=== PATIENT | male | born 1980 | race Caucasian/White ===

== ENCOUNTER → 2019-02-22 | Outpatient (CLI) | payer SELFPAY ==
[~2019-02-22] MED LIST: Cleocin HCl300 MG PO; IBUP800 PO; OXYACE5T PO; RXCLIN PO; RXTRAM50 PO; SULTRIDS PO; TRAM50 PO
== END | disposition home or self-care (01) ==
LOC: LAB SHORT 06:10 → LAB 06:10
DX: K21.9 Gastro-esophageal reflux disease without esophagitis (principal); R10.9 Unspecified abdominal pain
CPT/HCPCS: 87338

== ENCOUNTER 2019-05-12 14:37 | Inpatient (IN) | payer OTHER ==
[~2019-05-12] VITALS: Ht 177.8 cm; Wt 87.4 kg
[2019-05-12 15:34] LABS: BASOPHILS ABSOLUTE AUTO 0.02 K/mm3 (0.00-0.23); BASOPHILS PERCENT AUTO 0 % (0-2); EOSINOPHILS ABSOLUTE AUTO 0.19 K/mm3 (0.00-0.68); EOSINOPHILS PERCENT AUTO 3 % (0-6); Hematocrit 44.4 % (37.0-53.0); IMMATURE GRAN ABSOLUTE AUTO 0.01 K/mm3 (0.00-0.10); IMMATURE GRAN PERCENT AUTO 0 % (0-1); LYMPHOCYTES PERCENT AUTO 29 % (21-46); MONOCYTES ABSOLUTE AUTO 0.62 K/mm3 (0.16-1.47); MONOCYTES PERCENT AUTO 10 % (4-13); Mean Corpuscular HGB 31.8 pg (26.0-34.0); Mean Corpuscular HGB Conc 33.8 g/dL (31.5-36.5); Mean Corpuscular Volume 94 fL (80-100); Mean Platelet Volume 10.2 fL (9.1-12.4); NEUTROPHILS ABSOLUTE AUTO 3.66 K/mm3 (1.96-9.15); NEUTROPHILS PERCENT AUTO 58 % (41-73); Platelet Count 178 K/mm3 (150-400); RDW Coefficient Variation 12.4 % (11.7-14.2); RDW Standard Deviation 43.2 fL (35.1-46.3); Red Blood Cell Count 4.71 M/mm3 (4.30-5.90)
[2019-05-12 16:03] LABS: Alanine Aminotransfer (ALT/SGP 26 U/L (12-78); Albumin, Blood 3.6 g/dL (3.4-5.0); Albumin/Globulin Ratio 1.2 (0.8-1.8); Alk Phos 72 U/L (50-136); Anion Gap 3 mmol/L (6-16); Aspartate Aminotrans (AST/SGOT 24 U/L (12-37); Bilirubin, Total 0.4 mg/dL (0.1-1.0); Blood Urea Nitrogen 19 mg/dL (8-24); Bun/Creatinine Ratio 18.3 (12.0-20.0); CO2, Blood 27 mmol/L (21-32); Calcium, Blood 8.8 mg/dL (8.5-10.1); Chloride, Blood 109 mmol/L (98-108); Creatinine, Blood 1.04 mg/dL (0.60-1.20); Globulin, Blood 3.1 g/dL (2.2-4.0); Glomerular Filtration Rate >60 (60-); Glucose, Blood 99 mg/dL (70-99); Potassium, Blood 3.9 mmol/L (3.5-5.5); Sodium, Blood 139 mmol/L (136-145); Total Protein, Blood 6.7 g/dL (6.4-8.2)
[2019-05-12 16:05] LABS: Troponin I 0.525 ng/mL (0.000-0.040)
[2019-05-12 16:53] LABS: International Normalized Ratio 0.99; Prothrombin Time Results 10.6 Sec (9.7-11.5)
[2019-05-12 17:31] LABS: CPK Creatine Kinase 229 U/L (39-308)
--- NOTE | 2019-05-12 20:30 | NUR ---
RECEIVED HAND OFF FROM BRENDAN MONTERO IN ER USING SBAR. TRANSPORTED TO ROOM VIA STRETCHER WITH AT BEDSIDE. TRANSFERED SELF TO BED WITH STANDBY ASSIST, TOLERATED WELL. AAO X3. KRAFT, FOLLOWS ALL COMMANDS. ORIENTED TO ROOM, CALL SYSTEM, AND POC, VOICES UNDERSTANDING. TELEMETRY SHOWS NSR 70'S. RESPIRATIONS EVEN AND UNLABORED ON ROOM AIR. LUNG SOUNDS CLEAR BILATERALLY. ABDOMEN SOFT AND NONDISTENDED. BOWEL SOUNDS PRESENT IN ALL QUADS. RIGHT AC 20G PIV IS PATENT, FLUSHING WITH EASE WHILE INFUSING HEPARIN GTT AT 13U/KG/HR WHICH IS 22.6ML/HR, TOLERATING WELL. REFUSES ORDERED FLU VACCINE, STATES THAT HE DOESN'T TAKE VACCINES. DENIES CP AT THIS TIME, BUT C/O [employer]. WILL CALL FOR MED ORDERS. CONTINENT OF BOWEL AND BLADDER, USES BATHROOM. IS INDEPEDENT IN ROOM. ADMISSION ASSESSMENT IN PROGRESS. SAFETY MEASURS IN PLACE. WILL CONTINUE TO MONITOR.
[2019-05-13 00:09] LABS: Troponin I 0.592 ng/mL (0.000-0.040)
--- NOTE | 2019-05-13 00:40 | NUR ---
CRITICAL VALUE CALL BY HEMATOLOGY CALLED TO NIKKI Khanna FNP. NO NEW ORDERS NOTED. SAFETY MEASURES IN PLACE. WILL CONTINUE TO MONITOR.
[2019-05-13 05:26] LABS: Hematocrit 43.9 % (37.0-53.0); Hemoglobin 14.9 g/dL (13.5-17.5); Mean Corpuscular HGB Conc 33.9 g/dL (31.5-36.5); Mean Corpuscular Volume 94 fL (80-100); Mean Platelet Volume 10.6 fL (9.1-12.4); Platelet Count 182 K/mm3 (150-400); RDW Coefficient Variation 12.5 % (11.7-14.2); RDW Standard Deviation 43.4 fL (35.1-46.3); Red Blood Cell Count 4.66 M/mm3 (4.30-5.90); White Blood Cell Count 6.39 K/mm3 (4.00-11.30)
[2019-05-13 05:49] LABS: Anion Gap 7 mmol/L (6-16); Blood Urea Nitrogen 20 mg/dL (8-24); Bun/Creatinine Ratio 18.7 (12.0-20.0); CHOL/HDL RATIO 4.4; CO2, Blood 24 mmol/L (21-32); Calcium, Blood 8.6 mg/dL (8.5-10.1); Chloride, Blood 111 mmol/L (98-108); Cholesterol 171 mg/dL (50-200); Creatinine, Blood 1.07 mg/dL (0.60-1.20); Glomerular Filtration Rate >60 (60-); Glucose, Blood 107 mg/dL (70-99); HDL Cholesterol 39 mg/dL (>39); LDL/HDL RATIO 2.1; Low Density Lipoprotein Chol 84 mg/dL (0-110); Magnesium, Blood 2.4 mg/dL (1.6-2.4); Phosphorus, Blood 3.6 mg/dL (2.5-4.9); Potassium, Blood 3.7 mmol/L (3.5-5.5); Sodium, Blood 142 mmol/L (136-145); Triglycerides 241 mg/dL (30-140); Very Low Density Lipoprot Chol 48 mg/dL (6-28)
--- NOTE | 2019-05-13 07:09 | NUR ---
SHIFT SUMMARY ELEVATED TROPONIN RECEIVED EARLIER THIS SHIFT. HEPARIN LEVEL ADJUSTED PER PHARMACY. TELE SHOWS NSR WITH INVERTES T WAVES. DENIES PAIN, DISCOMFORT, OR FURTHER NEEDS AT THIS TIME. SAFETY MEASURES IN PLACE. WILL GIVE HAND OFF TO ONCOMING SHIFT USING SBAR.
[2019-05-13 09:06] LABS: Troponin I 0.498 ng/mL (0.000-0.040)
--- NOTE | 2019-05-13 18:06 | NUR ---
ECHOCARDIOGRAM COMPLETE
--- NOTE | 2019-05-13 18:23 | NUR ---
PCU DAYSHIFT SUMMARY PATIENT ALERT AND ORIENTED X4 T/O SHIFT. INDEPENDENT IN ROOM. RESP E/U ON ROOM AIR. PATIENT HAD C/P AND JAW PAIN WITH ELEVATED TROPONIN AND INVERTED T WAVES ON EKG - HEPARIN GTT RUNNING THIS AM. PATIENT LEFT UNIT FOR ANGIOGRAM AND RECIEVED 1 STENT. PATIENT TOLERATED PROCEDURE WELL. HEPARIN GTT D/C'D. TITRATING CARDIAC MEDICATIONS PER ANGIO AND ECHO RESULT. PATIENT REMAINS STABLE. RIGHT RADIAL SITE WITH TR BAND SLOWLY BEING RECOVERED PER PROTOCOL - NO S/SX OF BLEEDING OR HEMATOMA NOTED. PATIENT REMAINS INDEPENDENT IN ROOM, EDUCATED ON POST ANGIO PRECAUTIONS AND INSTRUCTIONS. WILL CONTINUE TO MONITOR AND REPORT TO NOC SHIFT RN. CALL LIGHT W/I REACH.
[2019-05-14 04:28] LABS: BASOPHILS ABSOLUTE AUTO 0.03 K/mm3 (0.00-0.23); BASOPHILS PERCENT AUTO 0 % (0-2); EOSINOPHILS PERCENT AUTO 3 % (0-6); Hematocrit 44.6 % (37.0-53.0); Hemoglobin 14.9 g/dL (13.5-17.5); IMMATURE GRAN ABSOLUTE AUTO 0.02 K/mm3 (0.00-0.10); IMMATURE GRAN PERCENT AUTO 0 % (0-1); LYMPHOCYTES ABSOLUTE AUTO 2.29 K/mm3 (0.84-5.20); LYMPHOCYTES PERCENT AUTO 29 % (21-46); MONOCYTES ABSOLUTE AUTO 0.69 K/mm3 (0.16-1.47); MONOCYTES PERCENT AUTO 9 % (4-13); Mean Corpuscular HGB Conc 33.4 g/dL (31.5-36.5); Mean Corpuscular Volume 96 fL (80-100); Mean Platelet Volume 10.6 fL (9.1-12.4); NEUTROPHILS ABSOLUTE AUTO 4.57 K/mm3 (1.96-9.15); NEUTROPHILS PERCENT AUTO 59 % (41-73); Platelet Count 171 K/mm3 (150-400); RDW Coefficient Variation 12.8 % (11.7-14.2); RDW Standard Deviation 45.2 fL (35.1-46.3); Red Blood Cell Count 4.66 M/mm3 (4.30-5.90)
[2019-05-14 04:29] LABS: Alanine Aminotransfer (ALT/SGP 26 U/L (12-78); Albumin, Blood 3.3 g/dL (3.4-5.0); Albumin/Globulin Ratio 1.1 (0.8-1.8); Alk Phos 61 U/L (50-136); Anion Gap 4 mmol/L (6-16); Aspartate Aminotrans (AST/SGOT 26 U/L (12-37); Bilirubin, Total 0.4 mg/dL (0.1-1.0); Blood Urea Nitrogen 17 mg/dL (8-24); Bun/Creatinine Ratio 15.3 (12.0-20.0); CO2, Blood 24 mmol/L (21-32); Calcium, Blood 8.5 mg/dL (8.5-10.1); Chloride, Blood 114 mmol/L (98-108); Creatinine, Blood 1.11 mg/dL (0.60-1.20); Globulin, Blood 3.1 g/dL (2.2-4.0); Glomerular Filtration Rate >60 (60-); Glucose, Blood 98 mg/dL (70-99); Potassium, Blood 3.9 mmol/L (3.5-5.5); Sodium, Blood 142 mmol/L (136-145); Total Protein, Blood 6.4 g/dL (6.4-8.2)
--- NOTE | 2019-05-14 05:32 | NUR ---
SUMMARY NO ACUTE CHANGES NOTED THROUGH THE NIGHT. VSS, ON RA, DENIES CP/PRESSURE, OPSITE REMAINS C/D/I TO RIGHT RADIAL WRIST, ARM BOARD IN PLACE, INDEPENDENT IN ROOM, TOLERAING PO INTAKE. A ONE TIME ORDER OF XANEX WAS GIVEN FOR ANXIETY. PT HAS BEEN ABLE TO SLEEP WITH NO PROBLEMS. CALL LIGHT IN REACH, [facility].
[2019-05-14] MEDS ORDERED: ASPI81CH PO (10:23)
[2019-05-14] MEDS ORDERED: MIRT30 PO (10:24)
[2019-05-14] MEDS ORDERED: CLOP75 PO (10:24)
[2019-05-14] MEDS ORDERED: LISI5 PO (10:24)
[2019-05-14] MEDS ORDERED: LIPITOR80 MG PO (10:24)
[2019-05-14] MEDS ORDERED: METO50ER PO (10:24)
[2019-05-14] MEDS ORDERED: Nicoderm Cq1 EAC1 TOP (10:25)
--- NOTE | 2019-05-14 12:03 | NUR ---
DISCHARGE PT DISCHARGED HOME. RIGHT RADIAL SITE CD&I. COVERED WITH OPSITE AND PT USING THE WRIST BOARD. PT UP AD CASSIE. GAIT STEADY. DENIES CHEST PAIN/PRESSURE. HERE. MEDICATION ORDERS FAXED TO [facility]. CONTINUE POT.
== END 2019-05-14 12:05 | disposition home or self-care (01) | DRG 247 ==
LOC: ER 14:37 → ERHOLD 18:08 → PCU 18:08
PROVIDERS: Internal Medicine; Physician Assistant; ADMIT Internal Medicine
PROC: 027034Z Dilation of Coronary Artery, One Artery with Drug-eluting Intraluminal Device, Percutaneous Approach (ICD-10-PCS; principal; 2019-05-13)
PROC: B211YZZ Fluoroscopy of Multiple Coronary Arteries using Other Contrast (ICD-10-PCS; 2019-05-13)
PROC: 4A023N7 Measurement of Cardiac Sampling and Pressure, Left Heart, Percutaneous Approach (ICD-10-PCS; 2019-05-13)
DX: I25.10 Atherosclerotic heart disease of native coronary artery without angina pectoris (principal); I25.5 Ischemic cardiomyopathy; E78.2 Mixed hyperlipidemia; F41.9 Anxiety disorder, unspecified; I16.0 Hypertensive urgency; I10 Essential (primary) hypertension; F17.210 Nicotine dependence, cigarettes, uncomplicated
CPT/HCPCS: 36415; 71046; 76937; 80048; 80053; 80061; 82550; 83036; 83735; 83880; 84100; 84443; 84484; 85025; 85027; 85347; 85610; 85730; 92978; 93005; 93010; 93306; 93454; 96374; 96375; 99152; 99153; 99285-25; A9270; A9270-GY; C1725; C1753; C1769; C1874; C1887; C1894; C9113; C9600; J0360; J1644; J2250; J2270; J2405; J3010; J7030; J7040; Q9967

== ENCOUNTER → 2019-12-19 | Outpatient (CLI) | payer OTHER ==
[~2019-12-19] MED LIST changes: +ASPI81CH PO; +CLOP75 PO; +LIPITOR80 MG PO; +LISI5 PO; +METO50ER PO; +MIRT30 PO; +Nicoderm Cq1 EAC1 TOP
== END ==
LOC: LAB SHORT 14:47 → PLD 14:47
DX: D22.5 Melanocytic nevi of trunk (principal); L57.0 Actinic keratosis
CPT/HCPCS: 88305

== ENCOUNTER → 2019-12-27 | Outpatient (CLI) | payer OTHER ==
[2019-12-28 09:06] LABS: Stool Occult Bld Immuno 1 Positive (NEGATIVE)
== END ==
LOC: LAB SHORT 13:22 → LAB 13:22
PROVIDERS: Nurse Practitioner Family
DX: K92.1 Melena (principal)
CPT/HCPCS: 82274

== ENCOUNTER 2020-03-17 16:07 | Emergency (ER) | payer OTHER ==
[~2020-03-17] VITALS: Ht 177.8 cm; Wt 88.5 kg
[2020-03-17 16:50] LABS: BASOPHILS ABSOLUTE AUTO 0.03 K/mm3 (0.00-0.23); BASOPHILS PERCENT AUTO 0 % (0-2); EOSINOPHILS ABSOLUTE AUTO 0.25 K/mm3 (0.00-0.68); EOSINOPHILS PERCENT AUTO 3 % (0-6); Hematocrit 46.6 % (37.0-53.0); Hemoglobin 15.8 g/dL (13.5-17.5); IMMATURE GRAN ABSOLUTE AUTO 0.01 K/mm3 (0.00-0.10); IMMATURE GRAN PERCENT AUTO 0 % (0-1); LYMPHOCYTES ABSOLUTE AUTO 3.07 K/mm3 (0.84-5.20); LYMPHOCYTES PERCENT AUTO 36 % (21-46); MONOCYTES ABSOLUTE AUTO 0.79 K/mm3 (0.16-1.47); MONOCYTES PERCENT AUTO 9 % (4-13); Mean Corpuscular HGB 31.2 pg (26.0-34.0); Mean Corpuscular HGB Conc 33.9 g/dL (31.5-36.5); Mean Corpuscular Volume 92 fL (80-100); Mean Platelet Volume 9.6 fL (9.1-12.4); NEUTROPHILS ABSOLUTE AUTO 4.45 K/mm3 (1.96-9.15); NEUTROPHILS PERCENT AUTO 52 % (41-73); Platelet Count 229 K/mm3 (150-400); RDW Coefficient Variation 11.9 % (11.7-14.2); Red Blood Cell Count 5.06 M/mm3 (4.30-5.90)
[2020-03-17 17:15] LABS: Alanine Aminotransfer (ALT/SGP 29 U/L (12-78); Albumin/Globulin Ratio 1.2 (0.8-1.8); Alk Phos 72 U/L (50-136); Anion Gap 9 mmol/L (6-16); Aspartate Aminotrans (AST/SGOT 20 U/L (12-37); Bilirubin, Total 0.3 mg/dL (0.1-1.0); Blood Urea Nitrogen 13 mg/dL (8-24); Bun/Creatinine Ratio 12.3 (12.0-20.0); CO2, Blood 21 mmol/L (21-32); Calcium, Blood 9.2 mg/dL (8.5-10.1); Chloride, Blood 112 mmol/L (98-108); Creatinine, Blood 1.06 mg/dL (0.60-1.20); Globulin, Blood 3.2 g/dL (2.2-4.0); Glomerular Filtration Rate >60 (60-); Glucose, Blood 91 mg/dL (70-99); Potassium, Blood 3.6 mmol/L (3.5-5.5); Sodium, Blood 142 mmol/L (136-145); Total Protein, Blood 7.2 g/dL (6.4-8.2); Troponin I <0.015 ng/mL (0.000-0.040)
[2020-03-17] MEDS ORDERED: Nitrostat0.4 MG SL (20:21)
== END 2020-03-17 20:27 | disposition home or self-care (01) ==
LOC: ER 16:07
PROVIDERS: Physician Assistant
DX: R07.9 Chest pain, unspecified (principal); Z79.82 Long term (current) use of aspirin; Z79.899 Other long term (current) drug therapy; Z79.02 Long term (current) use of antithrombotics/antiplatelets; Z87.891 Personal history of nicotine dependence
CPT/HCPCS: 36415; 71046; 80053; 84484; 85025; 93005; 93010; 99285-25; A9270

== ENCOUNTER 2020-05-01 15:16 | Emergency (ER) | payer OTHER ==
[~2020-05-01] VITALS: Ht 177.8 cm; Wt 87.5 kg
[~2020-05-01 15:16] MED LIST changes: +Nitrostat0.4 MG SL
[2020-05-01 15:51] LABS: BASOPHILS ABSOLUTE AUTO 0.04 K/mm3 (0.00-0.23); BASOPHILS PERCENT AUTO 1 % (0-2); EOSINOPHILS PERCENT AUTO 4 % (0-6); Hematocrit 45.1 % (37.0-53.0); Hemoglobin 15.4 g/dL (13.5-17.5); IMMATURE GRAN ABSOLUTE AUTO 0.05 K/mm3 (0.00-0.10); IMMATURE GRAN PERCENT AUTO 1 % (0-1); LYMPHOCYTES ABSOLUTE AUTO 1.85 K/mm3 (0.84-5.20); LYMPHOCYTES PERCENT AUTO 25 % (21-46); MONOCYTES ABSOLUTE AUTO 0.67 K/mm3 (0.16-1.47); MONOCYTES PERCENT AUTO 9 % (4-13); Mean Corpuscular HGB 31.8 pg (26.0-34.0); Mean Corpuscular HGB Conc 34.1 g/dL (31.5-36.5); Mean Corpuscular Volume 93 fL (80-100); Mean Platelet Volume 9.2 fL (9.1-12.4); NEUTROPHILS ABSOLUTE AUTO 4.42 K/mm3 (1.96-9.15); NEUTROPHILS PERCENT AUTO 60 % (41-73); Platelet Count 229 K/mm3 (150-400); RDW Coefficient Variation 12.3 % (11.7-14.2); RDW Standard Deviation 42.6 fL (35.1-46.3); Red Blood Cell Count 4.85 M/mm3 (4.30-5.90); White Blood Cell Count 7.33 K/mm3 (4.00-11.30)
[2020-05-01] MEDS ORDERED: Isosorbide Mono30 MG PO (15:52)
[2020-05-01] MEDS ORDERED: SERT50 PO (15:52)
[2020-05-01] MEDS ORDERED: ENTRESTO 24 MG1 EACH PO (15:52)
[2020-05-01] MEDS ORDERED: QUET25 PO (15:53)
[2020-05-01 16:13] LABS: Alanine Aminotransfer (ALT/SGP 36 U/L (12-78); Albumin, Blood 3.7 g/dL (3.4-5.0); Albumin/Globulin Ratio 1.2 (0.8-1.8); Alk Phos 81 U/L (50-136); Anion Gap 8 mmol/L (6-16); Aspartate Aminotrans (AST/SGOT 20 U/L (12-37); Bilirubin, Total 0.3 mg/dL (0.1-1.0); Blood Urea Nitrogen 20 mg/dL (8-24); Bun/Creatinine Ratio 20.1 (12.0-20.0); CO2, Blood 24 mmol/L (21-32); Chloride, Blood 109 mmol/L (98-108); Globulin, Blood 3.2 g/dL (2.2-4.0); Glomerular Filtration Rate >60 (60-); Glucose, Blood 97 mg/dL (70-99); Potassium, Blood 3.9 mmol/L (3.5-5.5); Sodium, Blood 141 mmol/L (136-145); Total Protein, Blood 6.9 g/dL (6.4-8.2); Troponin I <0.015 ng/mL (0.000-0.040)
== END 2020-05-01 18:50 | disposition home or self-care (01) ==
LOC: ER 15:16
PROVIDERS: Physician Assistant
DX: R07.9 Chest pain, unspecified (principal); I10 Essential (primary) hypertension; I25.2 Old myocardial infarction; Z79.82 Long term (current) use of aspirin; Z79.899 Other long term (current) drug therapy; Z87.891 Personal history of nicotine dependence
CPT/HCPCS: 71046; 80053; 83880; 84484; 85025; 93005; 93010; 99285-25

== ENCOUNTER 2020-06-10 07:41 | Day surgery (SDC) | payer OTHER ==
[~2020-06-10] VITALS: Ht 177.8 cm; Wt 91.8 kg
[~2020-06-10 07:41] MED LIST changes: +ENTRESTO 24 MG1 EACH PO; +Isosorbide Mono30 MG PO; +QUET25 PO; +SERT50 PO
[2020-06-10] MEDS ORDERED: CLOP75 (08:18)
== END 2020-06-10 10:54 | disposition home or self-care (01) ==
LOC: ORSCSDS 07:41
PROVIDERS: Student in an Organized Health Care Education/Training Program
PROC: 0DBH8ZX Excision of Cecum, Via Natural or Artificial Opening Endoscopic, Diagnostic (ICD-10-PCS; principal; 2020-06-10 09:00)
PROC: 0DBN8ZX Excision of Sigmoid Colon, Via Natural or Artificial Opening Endoscopic, Diagnostic (ICD-10-PCS; principal; 2020-06-10 09:00)
PROC: 0DBP8ZX Excision of Rectum, Via Natural or Artificial Opening Endoscopic, Diagnostic (ICD-10-PCS; principal; 2020-06-10 09:00)
PROC: 0DBL8ZX Excision of Transverse Colon, Via Natural or Artificial Opening Endoscopic, Diagnostic (ICD-10-PCS; principal; 2020-06-10 09:00)
PROC: 0DB58ZX Excision of Esophagus, Via Natural or Artificial Opening Endoscopic, Diagnostic (ICD-10-PCS; principal; 2020-06-10 09:00)
DX: K92.1 Melena (principal); K21.9 Gastro-esophageal reflux disease without esophagitis; D12.0 Benign neoplasm of cecum; D12.3 Benign neoplasm of transverse colon; D12.5 Benign neoplasm of sigmoid colon; D12.8 Benign neoplasm of rectum; K22.70 Barrett's esophagus without dysplasia; K64.4 Residual hemorrhoidal skin tags; K64.8 Other hemorrhoids; K44.9 Diaphragmatic hernia without obstruction or gangrene; I10 Essential (primary) hypertension; Z87.891 Personal history of nicotine dependence; Z79.899 Other long term (current) drug therapy; Z79.82 Long term (current) use of aspirin
CPT/HCPCS: 88305; J2405; J2704; J7120

== ENCOUNTER 2021-06-28 15:33 | Emergency (ER) | payer OTHER ==
[~2021-06-28] VITALS: Ht 180.3 cm; Wt 97.5 kg
[~2021-06-28 15:33] MED LIST changes: +CLOP75
[2021-06-28] MEDS ORDERED: OXYC5 PO (18:28)
== END 2021-06-28 18:55 | disposition home or self-care (01) ==
LOC: ER 15:33
DX: S06.9X1A Unspecified intracranial injury with loss of consciousness of 30 minutes or less, initial encounter (principal); S42.031A Displaced fracture of lateral end of right clavicle, initial encounter for closed fracture; S93.401A Sprain of unspecified ligament of right ankle, initial encounter; Z87.891 Personal history of nicotine dependence; Z79.899 Other long term (current) drug therapy; X58.XXXA Exposure to other specified factors, initial encounter
CPT/HCPCS: 70450; 71045; 73030; 73610; 96374; 96375; 96376; 99284-25; A9270; J1170; J2405

== ENCOUNTER 2021-07-06 11:49 | Day surgery (SDC) | payer OTHER ==
[~2021-07-06] VITALS: Ht 177 cm; Wt 97.5 kg
[~2021-07-06 11:49] MED LIST changes: +ASCO500 PO; +Carvedilol12.5 MG PO; +FAMO40 PO; +FURO20 PO; +KLONOPIN PO; +KLOR-CON 1010 ME7 PO; +LAMO100 PO; +OXYC5 PO; +PANT40 PO; +VITAMIN B12; +VITAMIN D31000 UNI1 PO; +ZYRTEC10 M4 PO
--- NOTE | 2021-07-06 18:12 | NUR ---
Discharge instructions reviewed with patient. Patient verbalizes understanding. Copy given to patient to take home. Dressing to procedure site clean, dry, intact with no visible drainage, swelling, erythema or bruising noted. PT ABLE TO MOVED FINGERS ON R HAND. CMS INTACT. PT PRESENT FOR DISCHARGE INSTRUCTIONS. PT HAS TOLERATED A CUP OF APPLE JUICE. DENIES PAIN. IV DC'D INTACT. Discharged via wheelchair to private car for ride home.
== END 2021-07-06 18:10 | disposition home or self-care (01) ==
LOC: ORD 11:49 → ORSCMMR 11:50 → ORD 13:30
PROVIDERS: Orthopaedic Surgery
PROC: 0PS904Z Reposition Right Clavicle with Internal Fixation Device, Open Approach (ICD-10-PCS; principal; 2021-07-06 13:30)
DX: S42.024A Nondisplaced fracture of shaft of right clavicle, initial encounter for closed fracture (principal); S22.41XA Multiple fractures of ribs, right side, initial encounter for closed fracture; F31.9 Bipolar disorder, unspecified; I10 Essential (primary) hypertension; K21.9 Gastro-esophageal reflux disease without esophagitis; E78.5 Hyperlipidemia, unspecified; I25.2 Old myocardial infarction; Z95.5 Presence of coronary angioplasty implant and graft; Z87.891 Personal history of nicotine dependence; Z79.82 Long term (current) use of aspirin; Z79.01 Long term (current) use of anticoagulants; X58.XXXA Exposure to other specified factors, initial encounter
CPT/HCPCS: A9270; C1713; J0171; J0690; J1100; J2250; J2405; J2704; J3010; J7120

== ENCOUNTER 2021-09-21 06:29 | Emergency (ER) | payer OTHER ==
[~2021-09-21] VITALS: Ht 180.3 cm; Wt 96.6 kg
[2021-09-21] MEDS ORDERED: VRAYLAR1.5 MG PO (07:10)
[2021-09-21] MEDS ORDERED: SUBVENITE PO (07:11)
[2021-09-21 07:38] LABS: Influenza A, PCR NEGATIVE (NEGATIVE); Influenza B, PCR NEGATIVE (NEGATIVE); Resp Syncytial Virus, PCR NEGATIVE (NEGATIVE); SARS-Cov-2 (COVID-19) PCR, MMC NEGATIVE (NEGATIVE)
[2021-09-21] MEDS ORDERED: RAYOS5 M1 PO (09:36)
[2021-09-21] MEDS ORDERED: AMOCLA875 PO (09:36)
== END 2021-09-21 10:47 | disposition home or self-care (01) ==
LOC: ER 06:29
PROVIDERS: Emergency Medicine
DX: J32.8 Other chronic sinusitis (principal); Z20.822 Contact with and (suspected) exposure to COVID-19; I10 Essential (primary) hypertension; Z79.899 Other long term (current) drug therapy; Z79.82 Long term (current) use of aspirin; Z87.891 Personal history of nicotine dependence; Z95.5 Presence of coronary angioplasty implant and graft; Z79.02 Long term (current) use of antithrombotics/antiplatelets
CPT/HCPCS: 0241U; 70486; J0295

== ENCOUNTER 2022-06-14 08:55 | Emergency (ER) | payer OTHER ==
[~2022-06-14] VITALS: Ht 177.8 cm; Wt 93.0 kg
[~2022-06-14 08:55] MED LIST changes: +AMOCLA875 PO; +POTA10T; +RAYOS5 M1 PO; +SUBVENITE PO; +VRAYLAR1.5 MG PO
[2022-06-14 09:40] LABS: BASOPHILS ABSOLUTE AUTO 0.04 K/mm3 (0.00-0.23); BASOPHILS PERCENT AUTO 1 % (0-2); EOSINOPHILS ABSOLUTE AUTO 0.33 K/mm3 (0.00-0.68); EOSINOPHILS PERCENT AUTO 4 % (0-6); Hematocrit 49.8 % (37.0-53.0); Hemoglobin 16.9 g/dL (13.5-17.5); IMMATURE GRAN ABSOLUTE AUTO 0.03 K/mm3 (0.00-0.10); IMMATURE GRAN PERCENT AUTO 0 % (0-1); LYMPHOCYTES ABSOLUTE AUTO 0.95 K/mm3 (0.84-5.20); LYMPHOCYTES PERCENT AUTO 12 % (21-46); MONOCYTES ABSOLUTE AUTO 0.86 K/mm3 (0.16-1.47); MONOCYTES PERCENT AUTO 11 % (4-13); Mean Corpuscular HGB 31.9 pg (26.0-34.0); Mean Corpuscular HGB Conc 33.9 g/dL (31.5-36.5); Mean Corpuscular Volume 94 fL (80-100); Mean Platelet Volume 9.2 fL (9.1-12.4); NEUTROPHILS ABSOLUTE AUTO 5.74 K/mm3 (1.96-9.15); NEUTROPHILS PERCENT AUTO 72 % (41-73); Platelet Count 206 K/mm3 (150-400); RDW Standard Deviation 44.1 fL (35.1-46.3); White Blood Cell Count 7.95 K/mm3 (4.00-11.30)
[2022-06-14 10:03] LABS: Albumin, Blood 3.8 g/dL (3.4-5.0); Albumin/Globulin Ratio 1.1 (0.8-1.8); Bilirubin, Total 0.3 mg/dL (0.1-1.0); Bun/Creatinine Ratio 15.8 (12.0-20.0); Calcium, Blood 8.9 mg/dL (8.5-10.1); Creatinine, Blood 1.01 mg/dL (0.60-1.20); Globulin, Blood 3.5 g/dL (2.2-4.0); Potassium, Blood 4.2 mmol/L (3.5-5.5); Total Protein, Blood 7.3 g/dL (6.4-8.2)
[2022-06-14] MEDS ORDERED: Prinivil10 MG PO (10:05)
[2022-06-14] MEDS ORDERED: ROSUVASTATIN CA10 MG PO (10:05)
[2022-06-14] MEDS ORDERED: PEPCID40 MG PO (10:06)
[2022-06-14] MEDS ORDERED: DEPO-TESTO200 MG/18 IM (10:06)
[2022-06-14] MEDS ORDERED: LAMOTRIGINE100 M1 PO (10:07)
[2022-06-14] MEDS ORDERED: PANTOPRAZOLE SO40 M2 PO (10:07)
== END 2022-06-14 10:53 | disposition home or self-care (01) ==
LOC: ER 08:55
PROVIDERS: Emergency Medicine
DX: R07.9 Chest pain, unspecified (principal); I20.9 Angina pectoris, unspecified; R19.7 Diarrhea, unspecified; I25.2 Old myocardial infarction; Z79.899 Other long term (current) drug therapy; Z79.82 Long term (current) use of aspirin; Z95.5 Presence of coronary angioplasty implant and graft; Z87.891 Personal history of nicotine dependence
CPT/HCPCS: 36415; 71045; 80053; 84484; 85025; 93005; 93010; 99284-25

== ENCOUNTER 2022-09-13 06:47 | Day surgery (SDC) | payer OTHER ==
[~2022-09-13] VITALS: Ht 177.8 cm; Wt 93.3 kg
[~2022-09-13 06:47] MED LIST changes: +DEPO-TESTO200 MG/18 IM; +LAMOTRIGINE100 M1 PO; +PANTOPRAZOLE SO40 M2 PO; +PEPCID40 MG PO; +Prinivil10 MG PO; +ROSUVASTATIN CA10 MG PO
[2022-09-13 10:12] VITALS: BP 114/70
== END 2022-09-13 09:15 | disposition home or self-care (01) ==
LOC: ORSCSDS 06:47
PROVIDERS: Student in an Organized Health Care Education/Training Program
PROC: 0DBL8ZX Excision of Transverse Colon, Via Natural or Artificial Opening Endoscopic, Diagnostic (ICD-10-PCS; principal; 2022-09-13 08:00)
PROC: 0DBH8ZX Excision of Cecum, Via Natural or Artificial Opening Endoscopic, Diagnostic (ICD-10-PCS; principal; 2022-09-13 08:00)
PROC: 0DBN8ZX Excision of Sigmoid Colon, Via Natural or Artificial Opening Endoscopic, Diagnostic (ICD-10-PCS; principal; 2022-09-13 08:00)
DX: K92.1 Melena (principal); Z86.010 Personal history of colon polyps; D12.0 Benign neoplasm of cecum; K63.5 Polyp of colon; K57.30 Diverticulosis of large intestine without perforation or abscess without bleeding; I10 Essential (primary) hypertension; K21.9 Gastro-esophageal reflux disease without esophagitis; E78.5 Hyperlipidemia, unspecified; F32.A Depression, unspecified; I25.10 Atherosclerotic heart disease of native coronary artery without angina pectoris; Z87.891 Personal history of nicotine dependence; Z79.02 Long term (current) use of antithrombotics/antiplatelets; Z79.899 Other long term (current) drug therapy
CPT/HCPCS: 88305; J2704; J7120

== ENCOUNTER 2023-06-29 09:24 | Day surgery (SDC) | payer OTHER ==
[~2023-06-29] VITALS: Ht 178 cm; Wt 97.8 kg
[2023-06-29] VITALS (10 sets, daily range): BP systolic 124–152; BP diastolic 77–104
[~2023-06-29 09:24] MED LIST changes: +Crestor20 MG PO; +Cymbalta20 MG PO; +Isosorbide Mono60 MG PO; +Lactated Ringer's 1,000 ML IV SCH; +Naltrexone HCl50 MG PO; -Prinivil10 MG PO; +ZYRTEC10 M2 PO; -ZYRTEC10 M4 PO
[2023-06-29] MEDS ORDERED: MULTI-VITAMIN1 EAC2 PO (10:13)
[2023-06-29] MEDS ORDERED: XYOSTED50 MG/0.1 IM (10:14)
[2023-06-29] MEDS ORDERED: DEPO-TESTO200 MG/18 IM (10:16)
--- NOTE | 2023-06-29 10:18 | NUR ---
History, Chart, Medications and Allergies reviewed before start of procedure. Patient up to Ambulate independently. Gait steady. Pre-Op teaching done. Pt verbalizes understanding. Patient confirms NPO status and agrees with scheduled surgery. Patient States Post-Procedure ride home has been arranged.
[2023-06-29] MEDS ORDERED: propofoL 20 ML IV ONE (10:34)
[2023-06-29] MEDS ORDERED: Benzocaine Oral Spray 0.5ML UD ONE (10:34)
[2023-06-29] MEDS ORDERED: Midazolam HCl 1MG / ML 2ML Vial ONE (10:35)
--- NOTE | 2023-06-29 10:56 | NUR ---
06/29/23 1056 Ranjith Neal HISTORY, CHART, MEDICATIONS AND ALLERGIES REVIEWED BEFORE START OF PROCEDURE. PATIENT CONFIRMS NPO STATUS AND AGREES WITH SCHEDULED PROCEDURE. 3-LEAD EKG REVIEWED WITH PHYSICIAN PRIOR TO START OF PROCEDURE. MONITOR INTACT WITH CONTINUOUS PULSE OXIMETRY,CAPNOGRAPHY, 3-LEAD EKG, INTERMITTENT BP. SUPPLEMENTAL O2 TO BE TITRATED THROUGHOUT PROCEDURE TO MAINTAIN O2 SATURATION ABOVE 90%. PATIENT DETERMINED TO BE ASA APPROPRIATE FOR PROPOFOL SEDATION PRIOR TO START OF PROCEDURE BY DR. JARA.
--- NOTE | 2023-06-29 11:09 | NUR ---
1106 REPORT RECEIVED FROM JINA CARDONA. VSS. PT ON RA. PT ABLE TO REPOSITION SELF IN BED. PT REQUESTING PO FLUIDS AND TOLERATING THEM WELL. PT RESTING QUIETLY. PT DENIES PAIN, NAUSEA OR OTHER DISCOMFORTS.
== END 2023-06-29 11:31 | disposition home or self-care (01) ==
LOC: ORSCMMR 09:24 → ORD 10:30 → ORSCMMR 10:30
PROVIDERS: Internal Medicine Gastroenterology
PROC: 0DB58ZX Excision of Esophagus, Via Natural or Artificial Opening Endoscopic, Diagnostic (ICD-10-PCS; principal; 2023-06-29 10:30)
PROC: 0DB48ZX Excision of Esophagogastric Junction, Via Natural or Artificial Opening Endoscopic, Diagnostic (ICD-10-PCS; principal; 2023-06-29 10:30)
DX: K22.70 Barrett's esophagus without dysplasia (principal); K44.9 Diaphragmatic hernia without obstruction or gangrene; K21.9 Gastro-esophageal reflux disease without esophagitis; I25.10 Atherosclerotic heart disease of native coronary artery without angina pectoris; I10 Essential (primary) hypertension; I25.2 Old myocardial infarction; Z79.899 Other long term (current) drug therapy; F17.210 Nicotine dependence, cigarettes, uncomplicated
CPT/HCPCS: 88305; 88312; A9270; J2250; J2704; J7120

== ENCOUNTER 2023-12-12 13:28 | Observation (INO) | payer OTHER ==
[~2023-12-12] VITALS: Ht 177.8 cm; Wt 73.9 kg
[~2023-12-12 13:28] MED LIST changes: -Lactated Ringer's 1,000 ML IV SCH; +MULTI-VITAMIN1 EAC2 PO; +XYOSTED50 MG/0.1 IM
[2023-12-12 14:21] LABS: BASOPHILS ABSOLUTE AUTO 0.02 K/mm3 (0.00-0.23); BASOPHILS PERCENT AUTO 0 % (0-2); EOSINOPHILS ABSOLUTE AUTO 0.11 K/mm3 (0.00-0.68); EOSINOPHILS PERCENT AUTO 2 % (0-6); Hematocrit 51.2 % (37.0-53.0); Hemoglobin 17.9 g/dL (13.5-17.5); IMMATURE GRAN ABSOLUTE AUTO 0.04 K/mm3 (0.00-0.10); IMMATURE GRAN PERCENT AUTO 1 % (0-1); LYMPHOCYTES ABSOLUTE AUTO 2.26 K/mm3 (0.84-5.20); LYMPHOCYTES PERCENT AUTO 32 % (21-46); MONOCYTES ABSOLUTE AUTO 0.63 K/mm3 (0.16-1.47); MONOCYTES PERCENT AUTO 9 % (4-13); Mean Corpuscular HGB 32.4 pg (26.0-34.0); Mean Corpuscular Volume 93 fL (80-100); Mean Platelet Volume 9.3 fL (9.1-12.4); NEUTROPHILS ABSOLUTE AUTO 3.94 K/mm3 (1.96-9.15); NEUTROPHILS PERCENT AUTO 56 % (41-73); Platelet Count 210 K/mm3 (150-400); RDW Coefficient Variation 12.4 % (11.7-14.2); RDW Standard Deviation 42.8 fL (35.1-46.3); Red Blood Cell Count 5.52 M/mm3 (4.30-5.90)
[2023-12-12 14:31] LABS: Albumin/Globulin Ratio 1.1 (0.8-1.8); Bilirubin, Total 0.6 mg/dL (0.1-1.0); Bun/Creatinine Ratio 18.1 (12.0-20.0); Calcium, Blood 9.6 mg/dL (8.5-10.1); Creatinine, Blood 1.16 mg/dL (0.60-1.20); Globulin, Blood 3.6 g/dL (2.2-4.0); Total Protein, Blood 7.6 g/dL (6.4-8.2)
[2023-12-12] MEDS ORDERED: Aspirin 325 MG Tab PO ONE (15:10)
[2023-12-12] MEDS ORDERED: Crestor40 MG PO (15:13)
[2023-12-12] MEDS ORDERED: METO25ER PO (15:14)
[2023-12-12] MEDS ORDERED: Acetaminophen 325 MG TABLET PO PRN (16:50)
[2023-12-12] MEDS ORDERED: FLU VACC TS2024-25(6MOS UP)/PF 45 MCG/0.5 ML SYRINGE IM SCH (16:55)
[2023-12-12] MEDS ORDERED: Nitroglycerin 0.4 MG SUBL SL PRN (16:55)
[2023-12-12] MEDS ORDERED: Nicotine 14 MG PATCH TOP PRN (16:55)
[2023-12-12 18:55] LABS: CHOL/HDL RATIO 4.7; Cholesterol 161 mg/dL (50-200); HDL Cholesterol 34 mg/dL (>39); LDL/HDL RATIO Unable to Calculate; Low Density Lipoprotein Chol Unable to Calculate mg/dL (0-110); Triglycerides 510 mg/dL (30-160); Very Low Density Lipoprot Chol Unable to Calculate mg/dL (6-32)
[2023-12-12 21:32] VITALS: BP 132/99
[2023-12-12 21:50] VITALS: BP 152/98
[2023-12-12] MEDS ORDERED: ERGO50000 PO (22:07)
[2023-12-12] MEDS ORDERED: DEPO-TESTO200 MG/18 IM (22:09)
[2023-12-13] VITALS (13 sets, daily range): BP systolic 127–160; BP diastolic 89–139
--- NOTE | 2023-12-13 04:35 | NUR ---
SHIFT SUMMARY: Pt is admitted for chest pain and is a full code. Is alert and able to make needs known. ADLs have been IND. states that he has had some pain that has been in the upper left chest and going through his shoulder and down into the top part of his arm. It has been this way from admit. It has not changed much. Declined anything from pain management.
[2023-12-13] MEDS ORDERED: Pantoprazole Sodium 40 MG Tab PO SCH (06:00)
[2023-12-13 06:02] LABS: BASOPHILS ABSOLUTE AUTO 0.03 K/mm3 (0.00-0.23); BASOPHILS PERCENT AUTO 1 % (0-2); EOSINOPHILS ABSOLUTE AUTO 0.19 K/mm3 (0.00-0.68); EOSINOPHILS PERCENT AUTO 3 % (0-6); Hematocrit 48.6 % (37.0-53.0); Hemoglobin 16.8 g/dL (13.5-17.5); IMMATURE GRAN ABSOLUTE AUTO 0.06 K/mm3 (0.00-0.10); IMMATURE GRAN PERCENT AUTO 1 % (0-1); LYMPHOCYTES ABSOLUTE AUTO 2.09 K/mm3 (0.84-5.20); LYMPHOCYTES PERCENT AUTO 35 % (21-46); MONOCYTES ABSOLUTE AUTO 0.58 K/mm3 (0.16-1.47); MONOCYTES PERCENT AUTO 10 % (4-13); Mean Corpuscular HGB 32.2 pg (26.0-34.0); Mean Corpuscular HGB Conc 34.6 g/dL (31.5-36.5); Mean Corpuscular Volume 93 fL (80-100); Mean Platelet Volume 9.2 fL (9.1-12.4); NEUTROPHILS ABSOLUTE AUTO 3.04 K/mm3 (1.96-9.15); NEUTROPHILS PERCENT AUTO 51 % (41-73); Platelet Count 194 K/mm3 (150-400); RDW Coefficient Variation 12.4 % (11.7-14.2); RDW Standard Deviation 42.8 fL (35.1-46.3); Red Blood Cell Count 5.21 M/mm3 (4.30-5.90); White Blood Cell Count 5.99 K/mm3 (4.00-11.30)
[2023-12-13 06:40] LABS: Bun/Creatinine Ratio 18.9 (12.0-20.0); Calcium, Blood 8.8 mg/dL (8.5-10.1); Creatinine, Blood 1.11 mg/dL (0.60-1.20); Potassium, Blood 3.9 mmol/L (3.5-5.5)
[2023-12-13] MEDS ORDERED: HydrALAZINE HCl 20 MG / ML 1ML Vial IV PRN (08:50)
[2023-12-13] MEDS ORDERED: Rosuvastatin Calcium 10 MG Tab PO SCH (09:00)
[2023-12-13] MEDS ORDERED: Aspirin 81 MG Chew PO SCH ×2 (09:00→21:00)
[2023-12-13] MEDS ORDERED: Loratadine 10 MG Tab PO SCH ×2 (09:00→21:00)
[2023-12-13] MEDS ORDERED: Lisinopril 5 MG Tab PO SCH (09:00)
[2023-12-13] MEDS ORDERED: Multivitamins 1 Tab PO SCH (09:00)
[2023-12-13] MEDS ORDERED: Metoprolol Succinate 25 MG TABCR PO SCH (09:00)
[2023-12-13] MEDS ORDERED: Enoxaparin 40 MG/0.4 ML SYR SC SCH (09:00)
[2023-12-13] MEDS ORDERED: Aspirin 325 MG Tab PO ONE ×2 (10:05)
[2023-12-13] MEDS ORDERED: Nitroglycerin 2 MG/20 ML BTL ONE (12:55)
[2023-12-13] MEDS ORDERED: NS 250 ML IV ONE (12:55)
[2023-12-13] MEDS ORDERED: Verapamil HCL 2.5 MG/ML 2ML Injection ONE (12:55)
[2023-12-13] MEDS ORDERED: NS 1,000 ML IV ONE ×2 (12:55→13:20)
[2023-12-13] MEDS ORDERED: Heparin Sodium 1000 Units/ML 10ML MDV ONE (12:55)
--- NOTE | 2023-12-13 13:09 | NUR ---
NOTE PT LEFT FOR ANGIOGRAM, PT LEFT VIA WHEELCHAIR, PT WILL BE TRANSFERED TO PCU POST ANGIO. FAMILY TOOK PT'S BELONGINGS FROM ROOM.
[2023-12-13] MEDS ORDERED: FentaNYL Citrate 50 MCG/ML 2 ML Injection ONE (13:20)
[2023-12-13] MEDS ORDERED: Midazolam HCl 1MG / ML 2ML Vial ONE (13:20)
--- NOTE | 2023-12-13 17:49 | NUR ---
ASSUMPTION OF CARE/SHIFT SUMMARY RECEIVED REPORT FROM MEDICAL FLOOR RN WEN. PT TO TRANSFER TO PCU FROM A AUXILIARY. PT ARRIVED TO PCU AROUNF 1420 FROM A AUXILIARY, TRANSFERED FROM WHEELCHAIR TO BED INDPENDENTLY. TR BAND/ARMBOARD IN PLACE, 10CC IN TR BAND. NO BLEEDING, HEMATOMA, OR BRUISING NOTED. PT ALERT AND ORIENTED, HR 60'S-70'S, SBP RANGING FROM 130-150'S, DENIES CP/PRESSURE, NUMB/TINGLING. O2 >92% ON RA, DENIES SOB. +BS, NO TENDERNESS ON PALPATION. SKIN INTACT, NO BREAKDOWN NOTED. WILL CONTINUE TO MONITOR PT AND REPORT TO JACQUARD LOOM CARD CHANGER RN.
--- NOTE | 2023-12-13 22:46 | NUR ---
ASSUMPTION OF CARE AFTER RECEIVING REPORT FROM DANIELA CARDONA, THIS RN ASSUMED CARE AT APPROX 1915. PATIENT IS ALERT AND ORIENTED X4. COMMUNICATES NEEDS EFFECTIVELY. INDEPENDENT IN ROOM. CALLS APPROPRIATELY FOR ASSISTANCE PRN. TELEMETRY SHOWING SINUS 60s-70s. BP STABLE, SBP 140s. DENIES CHEST PAIN, PRESSURE. S/P ANGIO WITH R RADIAL SITE. TR BAND REMOVED AT APPROX 194. SITE WNL - SOFT, NONTENDER. NO HEMATOMA. TEGADERM DX APPLIED. ARMBOARD IN PLACE. ON ROOM AIR, SATs >90%. RR EVEN, UNLABORED. CALL LIGHT IN REACH.
[2023-12-14 03:44] VITALS: BP 143/97
[2023-12-14 04:29] LABS: BASOPHILS ABSOLUTE AUTO 0.03 K/mm3 (0.00-0.23); BASOPHILS PERCENT AUTO 1 % (0-2); EOSINOPHILS ABSOLUTE AUTO 0.23 K/mm3 (0.00-0.68); EOSINOPHILS PERCENT AUTO 4 % (0-6); Hematocrit 51.3 % (37.0-53.0); Hemoglobin 17.9 g/dL (13.5-17.5); IMMATURE GRAN ABSOLUTE AUTO 0.07 K/mm3 (0.00-0.10); IMMATURE GRAN PERCENT AUTO 1 % (0-1); LYMPHOCYTES ABSOLUTE AUTO 1.96 K/mm3 (0.84-5.20); LYMPHOCYTES PERCENT AUTO 30 % (21-46); MONOCYTES ABSOLUTE AUTO 0.65 K/mm3 (0.16-1.47); MONOCYTES PERCENT AUTO 10 % (4-13); Mean Corpuscular HGB 32.4 pg (26.0-34.0); Mean Corpuscular HGB Conc 34.9 g/dL (31.5-36.5); Mean Corpuscular Volume 93 fL (80-100); Mean Platelet Volume 9.3 fL (9.1-12.4); NEUTROPHILS ABSOLUTE AUTO 3.69 K/mm3 (1.96-9.15); NEUTROPHILS PERCENT AUTO 56 % (41-73); Platelet Count 197 K/mm3 (150-400); RDW Coefficient Variation 12.4 % (11.7-14.2); RDW Standard Deviation 42.6 fL (35.1-46.3); Red Blood Cell Count 5.52 M/mm3 (4.30-5.90); White Blood Cell Count 6.63 K/mm3 (4.00-11.30)
[2023-12-14 05:10] LABS: Bun/Creatinine Ratio 17.8 (12.0-20.0); Calcium, Blood 9.3 mg/dL (8.5-10.1); Creatinine, Blood 1.01 mg/dL (0.60-1.20); Potassium, Blood 4.3 mmol/L (3.5-5.5)
--- NOTE | 2023-12-14 05:26 | NUR ---
SHIFT SUMMARY NO ACUTE EVENTS SINCE ASSUMPTION OF CARE NOTE. PATIENT SLEPT T/O, EASILY AROUSABLE WITH VERBAL STIMULI. INDEPENDENT IN ROOM. TELEMETRY SHOWING SINUS LING 50s-60s WITH SLEEP. SINUS 60s-70s WHILE AWAKE. BP STABLE, SBP 120s-140s. DENIES CHEST PAIN, PRESSURE. R RADIAL SITE REMAINS WNL - SOFT, NONTENDER. NO HEMATOMA. TEGADERM DX C/D/I. USES HOME CPAP WITH SLEEP, SATs >90%. RR EVEN, UNLABORED. VOIDING. WILL CONTINUE TO MONITOR AND REPORT TO ONCOMING RN.
[2023-12-14 08:35] VITALS: BP 139/102
[2023-12-14 11:42] VITALS: BP 142/93
--- NOTE | 2023-12-14 12:52 | NUR ---
DISCHARGE SUMMARY PT ALERT AND ORIENTED, CALM, COOPERATIVE TO CARE. VSS. NO CHANGES T/O SHIFT. LEFT PIV REMOVED, PRESSURE APPLIED, WRAPPED WITH GAUZE AND COBAN, PT TOLERATED WELL. TELE PATCHES REMOVED FROM PT. DISCHARGE INSTRUCTIONS REVIEWED WITH PT. NO QUESTION OR CONCERNS AT THIS TIME. PT LEFT VIA WHEELCHAIR WITH RN AT 1235.
== END 2023-12-14 12:40 | disposition home or self-care (01) ==
LOC: ER 13:28 → PCU 13:29 → MEDS 13:29 → ER 21:21 → MEDS 21:28 → PCU 12-13 14:40
PROVIDERS: Family Medicine; Student in an Organized Health Care Education/Training Program; ADMIT Family Medicine
DX: I25.110 Atherosclerotic heart disease of native coronary artery with unstable angina pectoris (principal); I25.2 Old myocardial infarction; I10 Essential (primary) hypertension; E78.1 Pure hyperglyceridemia; Z79.82 Long term (current) use of aspirin; Z79.899 Other long term (current) drug therapy; Z95.5 Presence of coronary angioplasty implant and graft
CPT/HCPCS: 36415; 71045; 76937; 80048; 80053; 80061; 83880; 84484; 85025; 93005; 93010; 93306; 93460; 99152; 99153; 99285-25; A9270; C1769; C1894; G0378; J1644; J2250; J3010; J7030; J7050; Q9967

== ENCOUNTER → 2024-06-03 | Outpatient (CLI) | payer OTHER ==
[~2024-06-03] MED LIST changes: +Crestor40 MG PO; +ERGO50000 PO; +METO25ER PO
[2024-06-03 15:48] LABS: BASOPHILS ABSOLUTE AUTO 0.02 K/mm3 (0.00-0.23); BASOPHILS PERCENT AUTO 0 % (0-2); EOSINOPHILS ABSOLUTE AUTO 0.04 K/mm3 (0.00-0.68); EOSINOPHILS PERCENT AUTO 1 % (0-6); Hematocrit 49.3 % (37.0-53.0); Hemoglobin 17.3 g/dL (13.5-17.5); IMMATURE GRAN ABSOLUTE AUTO 0.03 K/mm3 (0.00-0.10); IMMATURE GRAN PERCENT AUTO 0 % (0-1); LYMPHOCYTES ABSOLUTE AUTO 1.84 K/mm3 (0.84-5.20); LYMPHOCYTES PERCENT AUTO 26 % (21-46); MONOCYTES ABSOLUTE AUTO 0.55 K/mm3 (0.16-1.47); MONOCYTES PERCENT AUTO 8 % (4-13); Mean Corpuscular HGB 32.8 pg (26.0-34.0); Mean Corpuscular HGB Conc 35.1 g/dL (31.5-36.5); Mean Corpuscular Volume 93 fL (80-100); Mean Platelet Volume 9.3 fL (9.1-12.4); NEUTROPHILS ABSOLUTE AUTO 4.74 K/mm3 (1.96-9.15); NEUTROPHILS PERCENT AUTO 66 % (41-73); Platelet Count 188 K/mm3 (150-400); RDW Coefficient Variation 11.9 % (11.7-14.2); RDW Standard Deviation 41.1 fL (35.1-46.3); Red Blood Cell Count 5.28 M/mm3 (4.30-5.90); White Blood Cell Count 7.22 K/mm3 (4.00-11.30)
[2024-06-03 15:59] LABS: Albumin/Globulin Ratio 1.1 (0.8-1.8); Bilirubin, Total 0.5 mg/dL (0.1-1.0); Bun/Creatinine Ratio 11.5 (12.0-20.0); Calcium, Blood 9.4 mg/dL (8.5-10.1); Creatinine, Blood 0.96 mg/dL (0.60-1.20); Globulin, Blood 3.7 g/dL (2.2-4.0); Potassium, Blood 3.7 mmol/L (3.5-5.5); Total Protein, Blood 7.7 g/dL (6.4-8.2)
== END ==
LOC: LAB 15:44 → LAB SHORT 15:44
PROVIDERS: Physician Assistant Medical
DX: R10.30 Lower abdominal pain, unspecified (principal)
CPT/HCPCS: 80053; 85025